=== PATIENT | male | born 1985 | race Caucasian/White ===

== ENCOUNTER 2016-08-31 11:03 | Emergency (ER) | payer SELFPAY ==
[~2016-08-31] VITALS: Ht 185.4 cm; Wt 79.6 kg
[~2016-08-31 11:03] MED LIST: BUPR8SUB SL; IBUP800T23 PO
[2016-08-31 11:05] VITALS: BP 136/73; PULSE 82; RESP 17; TEMP 98.7
--- NOTE | 2016-08-31 11:12 | PD ---
HPI Chief Complaint: Laceration/Skin Injury Time Seen by Provider: 11:11 Travel History International Travel<30 days: No Contact w/Intl Traveler<30days: No Traveled to known affect area: No History of Present Illness HPI 30-year-old male presents the emergency department with laceration to the tip of the distal left thumb involving the distal nail. Patient was cutting cardboard on the roof of his house when the box maker slipped and cut through the tip of his left distal thumb, with cut through approximately 80% of the tip. Patient has numbness in the tip. Bleeding is currently controlled with compression. Patient has full function. Patient is unsure of his last tetanus. He has no other injury. He has no known drug allergies. [facility] Past Medical History Arthritis: No Asthma: No Autoimmune Disease: No Blood Disorders: No Anxiety: No Depression: No Heart Rhythm Problems: No Cancer: No Cardiovascular Problems: No High Cholesterol: No Chest Pain: No Congestive Heart Failure: No COPD: No Cerebrovascular Accident: No Diabetes: No Diminished Hearing: No Endocrine: No GERD: No Glaucoma: No Genitourinary: No Headaches: No Hepatitis: No Hiatal Hernia: No Hypertension: No Immune Disorder: No Kidney Stones: No Musculoskeletal: No Neurologic: No Psychiatric: No Reproductive: No Respiratory: No Migraines: No Myocardial Infarction: No Renal Failure: No Seizures: No Sickle Cell Disease: No Sleep Apnea: No Thyroid Disease: No Ulcer: No ?: Not Past Surgical History Abdominal Surgery: No Appendectomy: No Arteriovenous Shunt: No Body Medical Devices: MONO Cardiac Surgery: No Cholecystectomy: No Ear Surgery: No Endocrine Surgery: No Eye Surgery: No Genitourinary Surgery: No Gynecologic Surgery: No Insulin Pump: No Joint Replacement: Yes (KIMBERLY HIPS A CHILD RE: GROWTH PLATE ISSUES) Oral Surgery: No Pacemaker: No Thoracic Surgery: No Other Surgery: Yes (L 5TH DIGIT) Social History Alcohol Use: No Tobacco Use: Yes (2 PK DAILY) Substance Use: Yes (last used cocaine 8 months ago. testosterone 1 week ago; weed 1 wk ago) Allergies-Medications (Allergen,Severity, Reaction): Coded Allergies: No Known Allergies (Verified , 08/31/16) Reported Meds & Prescriptions Reported Meds & Active Scripts Active Reported Buprenorphine (Buprenorphine HCl) 8 Mg Subl 8 Mg SL BID Review of Systems Except as stated in HPI: all other systems reviewed are Neg General / Constitutional: No: Fever Eyes: No: Visual changes HENT: No: Headaches Cardiovascular: No: Chest Pain or Discomfort Respiratory: No: Shortness of Breath Gastrointestinal: No: Abdominal Pain Genitourinary: No: Dysuria Musculoskeletal: No: Pain Skin: No Rash Neurologic: No: Weakness Psychiatric: No: Depression Endocrine: No: Polydipsia Hematologic/Lymphatic: No: Easy Bruising Physical Exam Narrative GENERAL: Patient appears in mild distress. SKIN: Warm and dry. Normal color. Normal turgor. Patient has an almost full- thickness avulsion-type laceration to the distal left thumb which involves distal 20% of the thumbnail. HEAD: Atraumatic. Normocephalic. EYES: Pupils equal and round. No scleral icterus. No injection or drainage. ENT: No nasal bleeding or discharge. Mucous membranes pink and moist. Pharynx is clear. NECK: Trachea midline. Supple. CARDIOVASCULAR: Regular rate and rhythm. RESPIRATORY: No accessory muscle use. MUSCULOSKELETAL: Extremities without clubbing, cyanosis, or edema. No obvious deformities. NEUROLOGICAL: Awake and alert. No obvious cranial nerve deficits. Motor grossly within normal limits. Five out of 5 muscle strength in the arms and legs. Normal speech. PSYCHIATRIC: Appropriate mood and affect; insight and judgment normal. Data Data Last Documented VS Vital Signs Date Time Temp Pulse Resp B/P Pulse Ox O2 Delivery O2 Flow Rate FiO2 08/31/16 11:05 98.7 82 17 136/73 Orders Finger ([id number]) (08/31/16 11:15) Bupivacaine Pf 0.5% Inj (Marcaine Pf 0.5 (08/31/16 11:15) Tetanus/Diphtheria Tox Adult (Tetanus/Di (08/31/16 11:15) MDM Medical Decision Making Medical Screen Exam Complete: Yes Emergency Medical Condition: Yes Differential Diagnosis Left thumb laceration. Possible bony injury. Need for tetanus. Narrative Course Patient is medically stable at time of exam. X-ray of the left thumb is obtained to evaluate for bony involvement. Wound was soaked in 10% Betadine solution for 10 minutes. Laceration was repaired, see procedure note. Sterile dressing was applied and should remain in place for the next 4 days. Wound area is to be kept clean and dry. Patient follow-up here on Monday for wound check or he can see his primary care physician. Patient can return sooner if symptoms worsen in any way. Procedures Procedure Narrative LACERATION LOCATION: Left distal thumb including distal 20% of the thumbnail. LENGTH: 2 cm NUMBER OF STITCHES/AUGUST: 3 simple interrupted REPAIR: The area of the laceration was soaked in Betadine and saline and then sterilely draped. Digital block of 3mls 0.5% bupivacaine was placed.. The wound was copiously irrigated and explored without evidence of foreign body, tendon injury or neurovascular injury. The wound was closed using 4-0 Prolene. This was a single layer repair. A sterile dressing was applied. The patient was advised to keep the dressing clean and dry. Patient tolerated the procedure well. Diagnosis Primary Impression: Laceration of left thumb without foreign body with damage to nail Qualified Code: S61.112A - Laceration of left thumb without foreign body with damage to nail, initial encounter Patient Instructions: Finger Laceration (ED), General Instructions Additional Instructions: X-ray of the left thumb is obtained to evaluate for bony involvement. Wound was soaked in 10% Betadine solution for 10 minutes. Laceration was repaired, see procedure note. Sterile dressing was applied and should remain in place for the next 4 days. Wound area is to be kept clean and dry. Patient follow-up here on Monday for wound check or he can see his primary care physician. Patient can return sooner if symptoms worsen in any way. Med/Other Pt SpecificInfo: Prescription(s) given Disposition: 01 DISCHARGE HOME Condition: Stable Tyson Lopez August 31, 2016 11:11
[2016-08-31] MEDS ORDERED: TETANUS/DIPHTHERIA TOXOID ADULT 0.5 ML VIAL IM ONE (11:15)
[2016-08-31] MEDS ORDERED: BUPIVACAINE HCL PF 0.5% 30 ML VIAL INFIL ONE (11:15)
--- NOTE | 2016-08-31 11:35 | RADHPO ---
EXAM DATE/TIME: 08/31/2016 11:21 [facility] COMPARISON: No previous studies available for comparison. INDICATIONS : Patient states he sliced his left thumb open with a razor blade. Left thumb pain and laceration. MEDICAL HISTORY : None. SURGICAL HISTORY : Left hand, fifth digit. ENCOUNTER: Initial ACUITY: 1 day PAIN SCORE: 5/10 LOCATION: Left thumb. FINDINGS: Post surgical changes with fixation hardware across the DIP joint fifth digit. There are no fractures . There is a laceration of the tip of the first digit identified. There is a punctate radiodensity wi thin soft tissues at the laceration site. CONCLUSION: Laceration with punctate foreign body present. Dg Mckeon MD on August 31, 2016 at 11:32 Board Certified Radiologist. This report was verified electronically.
[2016-08-31] MEDS ORDERED: CEPH-460 PO (12:12)
== END 2016-08-31 12:08 | disposition home or self-care (01) ==
LOC: PHEFT 11:03
DX: S61.012A Laceration without foreign body of left thumb without damage to nail, initial encounter (principal); F17.200 Nicotine dependence, unspecified, uncomplicated; Z23 Encounter for immunization; W27.8XXA Contact with other nonpowered hand tool, initial encounter
CPT/HCPCS: 12001; 73140; 90471; 90714

== ENCOUNTER 2016-09-10 17:43 | Emergency (ER) | payer SELFPAY ==
[~2016-09-10] VITALS: Ht 185.4 cm; Wt 82.0 kg
[~2016-09-10 17:43] MED LIST changes: +CEPH-460 PO; -IBUP800T23 PO
[2016-09-10 17:44] VITALS: BP 108/57; PULSE 57; RESP 15; TEMP 98; O2SAT 99
[2016-09-10] MEDS ORDERED: CEPH-459 PO (18:47)
--- NOTE | 2016-09-10 18:48 | PD ---
HPI Chief Complaint: Laceration/Skin Injury Time Seen by Provider: 18:20 Travel History International Travel<30 days: No Contact w/Intl Traveler<30days: No Traveled to known affect area: No History of Present Illness HPI 30-year-old male presents the emergency department for evaluation of left thumb laceration. Patient sustained original injury on 08/31/16 he had a distal thumb lack which was repaired here in the emergency department. He reports that today while at work he hit the tip of the thumb which caused the sutures to break he then removed the rest of the sutures. He is here for evaluation of the thumb. At the time of the exam the wound is well approximated. No active bleeding. He has normal sensation of the finger and full range of motion. PFSH Past Medical History Medical History: Denies Significant Hx Arthritis: No Asthma: No Autoimmune Disease: No Blood Disorders: No Anxiety: No Depression: No Heart Rhythm Problems: No Cancer: No Cardiovascular Problems: No High Cholesterol: No Chest Pain: No Congestive Heart Failure: No COPD: No Cerebrovascular Accident: No Diabetes: No Diminished Hearing: No Endocrine: No GERD: No Glaucoma: No Genitourinary: No Headaches: No Hepatitis: No Hiatal Hernia: No Hypertension: No Immune Disorder: No Kidney Stones: No Musculoskeletal: No Neurologic: No Psychiatric: No Reproductive: No Respiratory: No Migraines: No Myocardial Infarction: No Renal Failure: No Seizures: No Sickle Cell Disease: No Sleep Apnea: No Thyroid Disease: No Ulcer: No ?: Not Past Surgical History Abdominal Surgery: No Appendectomy: No Arteriovenous Shunt: No Body Medical Devices: MONO Cardiac Surgery: No Cholecystectomy: No Ear Surgery: No Endocrine Surgery: No Eye Surgery: No Genitourinary Surgery: No Gynecologic Surgery: No Insulin Pump: No Joint Replacement: Yes (KIMBERLY HIPS A CHILD RE: GROWTH PLATE ISSUES) Oral Surgery: No Pacemaker: No Thoracic Surgery: No Other Surgery: Yes (L 5TH DIGIT) Social History Alcohol Use: No Tobacco Use: Yes (2 PK DAILY) Substance Use: Yes (HX COCAINE, MARIJUANA, TESTOSTERONE; DENIES PRESENTLY (08/31)) Allergies-Medications (Allergen,Severity, Reaction): Coded Allergies: No Known Allergies (Verified , 09/10/16) Reported Meds & Prescriptions Reported Meds & Active Scripts Active Keflex (Cephalexin) 500 Mg Cap 500 Mg PO Q6HR Reported Buprenorphine (Buprenorphine HCl) 8 Mg Subl 8 Mg SL BID Review of Systems Except as stated in HPI: all other systems reviewed are Neg Physical Exam Narrative GENERAL: Well-nourished, well-developed patient. SKIN: Focused skin assessment warm/dry. Healing laceration to the left distal thumb. No evidence of infection. Laceration as well approximated. HEAD: Normocephalic. EYES: No scleral icterus. No injection or drainage. NECK: Supple, trachea midline. No JVD or lymphadenopathy. CARDIOVASCULAR: Regular rate and rhythm without murmurs, gallops, or rubs. RESPIRATORY: Breath sounds equal bilaterally. No accessory muscle use. GASTROINTESTINAL: Abdomen soft, non-tender, nondistended. MUSCULOSKELETAL: No cyanosis, or edema. BACK: Nontender without obvious deformity. No CVA tenderness. Data Data Last Documented VS Vital Signs Date Time Temp Pulse Resp B/P Pulse Ox O2 Delivery O2 Flow Rate FiO2 09/10/16 17:44 98.0 57 15 108/57 99 MDM Medical Decision Making Medical Screen Exam Complete: Yes Emergency Medical Condition: Yes Differential Diagnosis Thumb laceration, wound recheck Narrative Course 30-year-old male who presents to emergency department after reinjuring his left thumb. He reports personally 2 weeks ago he cut the tip of his thumb which was then sutured here in the emergency room. He reports today at work he hit the tip of his thumb which cause the wound to dehisce and the sutures to break. He put a Steri-Strip in place to hold the laceration place. On exam the wound edges are well approximated. There is no active bleeding. There is no sign of infection. The wound was dressed. A birdcage thumb splint was placed. And patient was put on Keflex. Diagnosis Primary Impression: Laceration of left thumb without foreign body with damage tonail Qualified Code: S61.112A - Laceration of left thumb without foreign body with damage to nail, initial encounter Referrals: Primary Care Physician Scripts Cephalexin (Keflex)250 Mg [id number] Mg PO Q6H #20 CAP Ref 0 Prov:Tova Cao 09/10/16 Disposition: 01 DISCHARGE HOME Condition: Stable Tova Cao Sep 10, 2016 18:48
== END 2016-09-10 19:00 | disposition home or self-care (01) ==
LOC: PHEFT 17:43
DX: S61.112A Laceration without foreign body of left thumb with damage to nail, initial encounter (principal); F17.210 Nicotine dependence, cigarettes, uncomplicated; W22.8XXA Striking against or struck by other objects, initial encounter; Y93.9 Activity, unspecified; Y92.9 Unspecified place or not applicable; Y99.0 Civilian activity done for income or pay
CPT/HCPCS: 99283

== ENCOUNTER 2017-03-16 10:00 | Emergency (ER) | payer SELFPAY ==
[~2017-03-16] VITALS: Ht 185.4 cm; Wt 79.9 kg
[~2017-03-16 10:00] MED LIST changes: +CEPH-459 PO
[2017-03-16 10:04] VITALS: BP 143/93; PULSE 50; RESP 16; TEMP 97.9; O2SAT 100
[2017-03-16] MEDS ORDERED: ONDANSETRON HCL 4 MG/2 ML VIAL IVP ONE (10:30)
[2017-03-16] MEDS ORDERED: SODIUM CHLORIDE 0.9% FLUSH 10 ML FLUSH IV FLUSH PRN (10:30)
[2017-03-16] MEDS ORDERED: PROMETHAZINE INJ 25 MG/ML VIAL IM ONE (10:30)
[2017-03-16] MEDS ORDERED: FAMOTIDINE 20 MG/2 ML VIAL IV PUSH ONE (10:30)
[2017-03-16] MEDS ORDERED: SODIUM CHLOR 0.9% 1000 ML INJ 1,000 ML IV ONE (10:30)
--- NOTE | 2017-03-16 10:33 | PD ---
HPI Chief Complaint: GI Complaint Time Seen by Provider: 10:15 Travel History International Travel<30 days: No Contact w/Intl Traveler<30days: No Traveled to known affect area: No History of Present Illness HPI This patient complains of nausea and vomiting. Duration is 2 days. Severity is moderate. Patient has history of IV drug abuse. He is currently injecting Subutex into his right external jugular vein. Denies diarrhea. Denies fever. No alleviating factors. No exacerbating factors. Patient has been taking Subutex for 1.5 years. Used to inject IV Dilaudid but says he no longer does. Says he has history of GERD and gastroparesis. PFSH Past Medical History Arthritis: No Asthma: No Autoimmune Disease: No Blood Disorders: No Anxiety: No Depression: No Heart Rhythm Problems: No Cancer: No Cardiovascular Problems: No High Cholesterol: No Chest Pain: No Congestive Heart Failure: No COPD: No Cerebrovascular Accident: No Diabetes: No Diminished Hearing: No Endocrine: No Gastrointestinal Disorders: Yes (gastroparesis) GERD: No Glaucoma: No Genitourinary: No Headaches: No Hepatitis: No Hiatal Hernia: No Hypertension: No Immune Disorder: No Kidney Stones: No Musculoskeletal: No Neurologic: No Psychiatric: No Reproductive: No Respiratory: No Immunizations Current: Yes Migraines: No Myocardial Infarction: No Renal Failure: No Seizures: No Sickle Cell Disease: No Sleep Apnea: No Thyroid Disease: No Ulcer: No Influenza Vaccination: No Past Surgical History Abdominal Surgery: No Appendectomy: No Arteriovenous Shunt: No Body Medical Devices: MONO Cardiac Surgery: No Cholecystectomy: No Ear Surgery: No Endocrine Surgery: No Eye Surgery: No Genitourinary Surgery: No Gynecologic Surgery: No Insulin Pump: No Joint Replacement: Yes (KIMBERLY HIPS A CHILD RE: GROWTH PLATE ISSUES) Oral Surgery: No Pacemaker: No Thoracic Surgery: No Other Surgery: Yes (L 5TH DIGIT) Social History Alcohol Use: No Tobacco Use: Yes (2 PK DAILY) Substance Use: Yes (HX COCAINE, MARIJUANA, TESTOSTERONE; DENIES PRESENTLY (08/31)) Allergies-Medications (Allergen,Severity, Reaction): Coded Allergies: No Known Allergies (Verified Adverse Reaction, Unknown, 03/16/17) Reported Meds & Prescriptions Reported Meds & Active Scripts Active Phenergan (Promethazine HCl) 25 Mg Tablet 25 Mg PO Q6H PRN Zofran Odt (Ondansetron Odt) 4 Mg Tab 4 Mg SL Q6HR PRN Reported Buprenorphine (Buprenorphine HCl) 8 Mg Subl 8 Mg SL BID Review of Systems General / Constitutional: No: Fever Eyes: No: Visual changes HENT: No: Headaches Cardiovascular: No: Chest Pain or Discomfort Respiratory: No: Shortness of Breath Gastrointestinal: Positive: Nausea, Vomiting, No: Abdominal Pain Genitourinary: No: Dysuria Musculoskeletal: No: Pain Skin: No Rash Neurologic: No: Weakness Psychiatric: Positive: Substance Abuse, No: Depression Endocrine: No: Polydipsia Hematologic/Lymphatic: No: Easy Bruising Physical Exam Narrative GENERAL: Well-nourished, well-developed patient with nausea and vomiting . SKIN: Focused skin assessment reveals no rash and nodules. Skin is Warm and dry. HEAD: Atraumatic. Normocephalic. EYES: Pupils equal and round. No scleral icterus. No injection or drainage. ENT: No nasal bleeding or discharge. Mucous membranes pink and moist. NECK: Trachea midline. No JVD. Has right external jugular tract rust CARDIOVASCULAR: Regular rate and rhythm. No murmur appreciated. RESPIRATORY: No accessory muscle use. Clear to auscultation. Breath sounds equal bilaterally. GASTROINTESTINAL: Abdomen soft, non-tender, nondistended. Hepatic and splenic margins not palpable. MUSCULOSKELETAL: No obvious deformities. No clubbing. No cyanosis. No edema. NEUROLOGICAL: Awake and alert. No obvious cranial nerve deficits. Motor grossly within normal limits. Normal speech. PSYCHIATRIC: Appropriate mood and affect; insight and judgment poor . Data Data Last Documented VS Vital Signs Date Time Temp Pulse Resp B/P (MAP) Pulse Ox O2 Delivery O2 Flow Rate FiO2 03/16/17 11:25 72 16 135/89 (104) 99 Room Air 03/16/17 10:04 97.9 Orders Orders Complete Blood Count With Diff (03/16/17 10:26) Comprehensive Metabolic Panel (03/16/17 10:26) Lipase (03/16/17 10:26) Iv Access Insert/Monitor (03/16/17 10:26) Ondansetron Inj (Zofran Inj) (03/16/17 10:30) Sodium Chloride 0.9% Flush (Ns Flush) (03/16/17 10:30) Famotidine Inj (Pepcid Inj) (03/16/17 10:30) Promethazine Inj (Phenergan Inj) (03/16/17 10:30) Sodium Chlor 0.9% 1000 Ml Inj (Ns 1000 M (03/16/17 10:30) Labs Laboratory Tests Test 03/16/17 10:30 White Blood Count 6.1 TH/MM3 Red Blood Count 5.27 MIL/MM3 Hemoglobin 15.3 GM/DL Hematocrit 46.1 % Mean Corpuscular Volume 87.5 FL Mean Corpuscular Hemoglobin 29.1 PG Mean Corpuscular Hemoglobin Concent 33.2 % Red Cell Distribution Width 12.7 % Platelet Count 178 TH/MM3 Mean Platelet Volume 7.2 FL Neutrophils (%) (Auto) 59.1 % Lymphocytes (%) (Auto) 30.6 % Monocytes (%) (Auto) 6.0 % Eosinophils (%) (Auto) 3.2 % Basophils (%) (Auto) 1.1 % Neutrophils # (Auto) 3.5 TH/MM3 Lymphocytes # (Auto) 1.9 TH/MM3 Monocytes # (Auto) 0.4 TH/MM3 Eosinophils # (Auto) 0.2 TH/MM3 Basophils # (Auto) 0.1 TH/MM3 CBC Comment DIFF FINAL Differential Comment Blood Urea Nitrogen 19 MG/DL Creatinine 1.00 MG/DL Random Glucose 116 MG/DL Total Protein 7.9 GM/DL Albumin 4.2 GM/DL Calcium Level 9.2 MG/DL Alkaline Phosphatase 82 U/L Aspartate Amino Transf (AST/SGOT) 28 U/L Alanine Aminotransferase (ALT/SGPT) 46 U/L Total Bilirubin 0.7 MG/DL Sodium Level 138 MEQ/L Potassium Level 4.2 MEQ/L Chloride Level 105 MEQ/L Carbon Dioxide Level 25.9 MEQ/L Anion Gap 7 MEQ/L Estimat Glomerular Filtration Rate 88 ML/MIN Lipase 130 U/L [facility] Medical Decision Making Medical Screen Exam Complete: Yes Emergency Medical Condition: Yes Medical Record Reviewed: Yes Differential Diagnosis Narcotic withdrawal, gastroenteritis, gastroparesis Narrative Course I have reviewed the patient's electronic medical record. IV placed CBC is normal metabolic profile is normal LFT's are normal lipase is normal I gave him 1 L normal saline IV bolus as well as IV Zofran and IM Phenergan and IV Tagamet. On reassessment he is feeling much better. Looks clinically well. Stable for outpatient follow-up Phenergan and Zofran prescribed Diagnosis Primary Impression: Nausea and vomiting Qualified Codes: R11.2 - Nausea with vomiting, unspecified Additional Instructions: The patient was advised to follow up with their physician and return if they worsen. The patient was warned about potential sedation for the medications they will receive on prescription. I have recommended clear liquids for 24 hours, then gradually advance as tolerated. Med/Other Pt SpecificInfo: Prescription(s) given Scripts Promethazine (Phenergan) 25 Mg Tablet 25 MG PO Q6H Y for NAUSEA OR VOMITING, #12 TAB 0 Refills Prov: Bolivar Gay MD 03/16/17 Ondansetron Odt (Zofran Odt) 4 Mg Tab 4 MG SL Q6HR Y for Nausea/Vomiting, #12 TAB 0 Refills Prov: Boliavr Gay MD 03/16/17 Disposition: 01 DISCHARGE HOME Condition: Stable Bolivar Gay MD Mar 16, 2017 10:33
[2017-03-16 10:37] LABS: AUTOMATED NEUTROPHIL # 3.5 TH/MM3 (1.8-7.7); BASOPHIL # 0.1 TH/MM3 (0-0.2); BASOPHIL % 1.1 % (0.0-2.0); EOSINOPHIL # 0.2 TH/MM3 (0-0.4); EOSINOPHIL % 3.2 % (0.0-4.0); HEMATOCRIT 46.1 % (39.0-51.0); HEMO FLAGS DIFF FINAL; LYMPH % 30.6 % (9.0-44.0); LYMPHOCYTE # 1.9 TH/MM3 (1.0-4.8); MEAN CELL VOLUME 87.5 FL (80.0-100.0); MEAN CORPUSCULAR HEMOGLOBIN 29.1 PG (27.0-34.0); MEAN CORPUSCULAR HGB CONC 33.2 % (32.0-36.0); NEUT % 59.1 % (16.0-70.0); PLATELET COUNT 178 TH/MM3 (150-450); RED BLOOD COUNT 5.27 MIL/MM3 (4.50-5.90); RED CELL DISTRIBUTION WIDTH 12.7 % (11.6-17.2); WHITE BLOOD COUNT 6.1 TH/MM3 (4.0-11.0)
[2017-03-16 10:45] LABS: CHLORIDE 105 MEQ/L (98-107); POTASSIUM 4.2 MEQ/L (3.5-5.1); SODIUM (NA) 138 MEQ/L (136-145)
[2017-03-16 10:49] LABS: ANION GAP 7 MEQ/L (5-15); BICARBONATE 25.9 MEQ/L (21.0-32.0); BLOOD UREA NITROGEN 19 MG/DL (7-18)
[2017-03-16 10:51] LABS: ALT (GPT) 46 U/L (12-78)
[2017-03-16 10:52] LABS: AST (GOT) 28 U/L (15-37); GLOMERULAR FILTRATION RATE 88 ML/MIN (>89)
[2017-03-16 10:53] LABS: TOTAL BILIRUBIN ADULT 0.7 MG/DL (0.2-1.0)
[2017-03-16 10:54] LABS: ALKALINE PHOSPHATASE 82 U/L (45-117)
[2017-03-16 11:25] VITALS: BP 135/89; PULSE 72; RESP 16; O2SAT 99
[2017-03-16] MEDS ORDERED: PROM25TA10 PO (11:29)
[2017-03-16] MEDS ORDERED: ZOFR4TAB3 SL (11:29)
== END 2017-03-16 11:59 | disposition home or self-care (01) ==
LOC: PHED 10:00
DX: K31.84 Gastroparesis (principal); F17.200 Nicotine dependence, unspecified, uncomplicated
CPT/HCPCS: 80053; 83690; 85025; 96361; 96372; 96374; 96375; 99284; J2405; J2550; J7030

== ENCOUNTER 2017-06-02 10:09 | Emergency (ER) | payer SELFPAY ==
[~2017-06-02] VITALS: Ht 182.9 cm; Wt 79.9 kg
[~2017-06-02 10:09] MED LIST changes: -CEPH-459 PO; -CEPH-460 PO; +PROM25TA10 PO; +ZOFR4TAB3 SL
[2017-06-02 10:13] VITALS: BP 134/81; PULSE 44; RESP 16; TEMP 97.7; O2SAT 100
[2017-06-02] MEDS ORDERED: SUBO8MIS SL (10:41)
[2017-06-02] MEDS ORDERED: SODIUM CHLOR 0.9% 1000 ML INJ 1,000 ML IV ONE ×2 (10:53→12:00)
[2017-06-02] MEDS ORDERED: PROCHLORPERAZINE INJ 10 MG/2 ML VIAL IV PUSH ONE (11:00)
[2017-06-02] MEDS ORDERED: SODIUM CHLORIDE 0.9% FLUSH 10 ML FLUSH IVF PRN (11:00)
[2017-06-02] MEDS ORDERED: diphenhydrAMINE HCL 50 MG/ML VIAL IV PUSH ONE (11:00)
[2017-06-02 11:21] LABS: AUTOMATED NEUTROPHIL # 4.8 TH/MM3 (1.8-7.7); BASOPHIL % 0.3 % (0.0-2.0); EOSINOPHIL # 0.2 TH/MM3 (0-0.4); EOSINOPHIL % 2.7 % (0.0-4.0); HEMATOCRIT 40.8 % (39.0-51.0); HEMOGLOBIN 14.5 GM/DL (13.0-17.0); LYMPH % 19.7 % (9.0-44.0); LYMPHOCYTE # 1.3 TH/MM3 (1.0-4.8); MEAN CELL VOLUME 87.4 FL (80.0-100.0); MEAN CORPUSCULAR HGB CONC 35.5 % (32.0-36.0); MEAN PLATELET VOLUME 7.6 FL (7.0-11.0); MONO % 3.5 % (0.0-8.0); MONOCYTE # 0.2 TH/MM3 (0-0.9); NEUT % 73.8 % (16.0-70.0); PLATELET COUNT 173 TH/MM3 (150-450); RED BLOOD COUNT 4.67 MIL/MM3 (4.50-5.90); RED CELL DISTRIBUTION WIDTH 12.8 % (11.6-17.2); WHITE BLOOD COUNT 6.5 TH/MM3 (4.0-11.0)
[2017-06-02] MEDS ORDERED: PROM25TA10 PO (11:28)
--- NOTE | 2017-06-02 11:29 | PD ---
HPI . Vomiting Chief Complaint: GI Complaint Time Seen by Provider: 10:37 Travel History International Travel<30 days: No Contact w/Intl Traveler<30days: No Traveled to known affect area: No History of Present Illness HPI Patient presents with a chief complaint of nausea and vomiting. Onset was 2 days ago. He denies diarrhea or fever. He states that he has a history of gastroparesis and that he believes his symptoms today are due to gastroparesis. He reports no abdominal pain. He states that the emesis has been severe and is now bilious. PFSH Past Medical History Arthritis: No Asthma: No Autoimmune Disease: No Blood Disorders: No Anxiety: No Depression: No Heart Rhythm Problems: No Cancer: No Cardiovascular Problems: No High Cholesterol: No Chest Pain: No Congestive Heart Failure: No COPD: No Cerebrovascular Accident: No Diabetes: No Diminished Hearing: No Endocrine: No Gastrointestinal Disorders: Yes (gastroparesis) GERD: Yes Glaucoma: No Genitourinary: No Headaches: No Hepatitis: No Hiatal Hernia: Yes Hypertension: No Immune Disorder: No Kidney Stones: No Musculoskeletal: Yes (chronic back pain) Neurologic: No Psychiatric: No Reproductive: No Respiratory: No Immunizations Current: Yes Migraines: No Myocardial Infarction: No Renal Failure: No Seizures: No Sickle Cell Disease: No Sleep Apnea: No Thyroid Disease: No Ulcer: Yes Tetanus Vaccination: < 5 Years Influenza Vaccination: No Past Surgical History Abdominal Surgery: No Appendectomy: No Arteriovenous Shunt: No Body Medical Devices: MONO Cardiac Surgery: No Cholecystectomy: No Ear Surgery: No Endocrine Surgery: No Eye Surgery: No Genitourinary Surgery: No Gynecologic Surgery: No Insulin Pump: No Joint Replacement: Yes (KIMBERLY HIPS A CHILD RE: GROWTH PLATE ISSUES) Oral Surgery: No Pacemaker: No Thoracic Surgery: No Other Surgery: Yes (L 5TH DIGIT, left arm) Social History Alcohol Use: No Tobacco Use: Yes ( quit 2 months ago 2 PK DAILY) Substance Use: Yes (HX COCAINE of, MARIJUANA, TESTOSTERONE; DENIES PRESENTLY) Allergies-Medications (Allergen,Severity, Reaction): Coded Allergies: No Known Allergies (Verified Adverse Reaction, Unknown, 06/02/17) Reported Meds & Prescriptions Reported Meds & Active Scripts Active Phenergan (Promethazine HCl) 25 Mg Tablet 25 Mg PO Q6H PRN Reported Suboxone Sublingual Film (Buprenorphine-Naloxone Sublingual Film) 8-2 Mg Film 1 Film SL BID Unique ID number required: Review of Systems Except as stated in HPI: all other systems reviewed are Neg General / Constitutional: No: Fever, Chills Gastrointestinal: Positive: Nausea, Vomiting, No: Diarrhea, Abdominal Pain Physical Exam Narrative GENERAL: Awake and alert and in no acute distress. SKIN: warm/dry. Normal color and turgor. HEAD: Normocephalic. Atraumatic. EYES: Pupils equal and round. No scleral icterus. No injection or drainage. ENT: No nasal bleeding or discharge. Mucous membranes pink and moist. NECK: Trachea midline. Full range of motion without pain.. CARDIOVASCULAR: Regular rate and rhythm. Heart sounds normal. RESPIRATORY: No accessory muscle use. Clear to auscultation. Breath sounds equal bilaterally. GASTROINTESTINAL: Abdomen soft. Nontender. Bowel sounds present. Nondistended. MUSCULOSKELETAL: No obvious deformities. NEUROLOGICAL: Awake and alert. No obvious cranial nerve deficits. Motor grossly within normal limits. Normal speech. PSYCHIATRIC: Appropriate mood and affect; insight and judgment normal. Data Data Last Documented VS Vital Signs Date Time Temp Pulse Resp B/P (MAP) Pulse Ox O2 Delivery O2 Flow Rate FiO2 06/02/17 10:36 16 06/02/17 10:13 97.7 44 134/81 (98) 100 Orders Orders Complete Blood Count With Diff (06/02/17 10:53) Comprehensive Metabolic Panel (06/02/17 10:53) Lipase (06/02/17 10:53) Iv Access Insert/Monitor (06/02/17 10:53) Sodium Chlor 0.9% 1000 Ml Inj (Ns 1000 M (06/02/17 10:53) Sodium Chloride 0.9% Flush (Ns Flush) (06/02/17 11:00) Diphenhydramine Inj (Benadryl Inj) (06/02/17 11:00) Prochlorperazine Inj (Compazine Inj) (06/02/17 11:00) Sodium Chlor 0.9% 1000 Ml Inj (Ns 1000 M (06/02/17 12:00) Labs Laboratory Tests Test 06/02/17 11:10 White Blood Count 6.5 TH/MM3 Red Blood Count 4.67 MIL/MM3 Hemoglobin 14.5 GM/DL Hematocrit 40.8 % Mean Corpuscular Volume 87.4 FL Mean Corpuscular Hemoglobin 31.0 PG Mean Corpuscular Hemoglobin Concent 35.5 % Red Cell Distribution Width 12.8 % Platelet Count 173 TH/MM3 Mean Platelet Volume 7.6 FL Neutrophils (%) (Auto) 73.8 % Lymphocytes (%) (Auto) 19.7 % Monocytes (%) (Auto) 3.5 % Eosinophils (%) (Auto) 2.7 % Basophils (%) (Auto) 0.3 % Neutrophils # (Auto) 4.8 TH/MM3 Lymphocytes # (Auto) 1.3 TH/MM3 Monocytes # (Auto) 0.2 TH/MM3 Eosinophils # (Auto) 0.2 TH/MM3 Basophils # (Auto) 0.0 TH/MM3 CBC Comment DIFF FINAL Differential Comment Blood Urea Nitrogen 16 MG/DL Creatinine 0.76 MG/DL Random Glucose 109 MG/DL Total Protein 7.6 GM/DL Albumin 4.0 GM/DL Calcium Level 9.1 MG/DL Alkaline Phosphatase 76 U/L Aspartate Amino Transf (AST/SGOT) 90 U/L Alanine Aminotransferase (ALT/SGPT) 153 U/L Total Bilirubin 0.7 MG/DL Sodium Level 139 MEQ/L Potassium Level 3.8 MEQ/L Chloride Level 103 MEQ/L Carbon Dioxide Level 29.0 MEQ/L Anion Gap 7 MEQ/L Estimat Glomerular Filtration Rate 121 ML/MIN Lipase 108 U/L MDM Medical Decision Making Medical Screen Exam Complete: Yes Emergency Medical Condition: Yes Differential Diagnosis Differential diagnosis includes but is not limited to viral gastritis, food poisoning, pancreatitis, pneumonia, hepatitis, acute coronary syndrome, Narrative Course This patient presents with the chief complaint of nausea and vomiting. He will be treated with IV fluids and IV antibiotics. CBC Diagram 06/02/17 11:10 BMP Diagram 06/02/17 11:10 Total Protein 7.6, Albumin 4.0, Calcium Level 9.1, Alkaline Phosphatase 76, Aspartate Amino Transf (AST/SGOT) 90 H, Alanine Aminotransferase (ALT/SGPT) 153 H, Total Bilirubin 0.7 The patient reports that he is feeling much better. However, he has not yet developed the urge to urinate. He will be given a second liter fluid. When the nurse went in to give him his second liter of fluid, he declined stating that he was feeling much better and had now started urinating. Diagnosis Primary Impression: Vomiting Qualified Codes: R11.14 - Bilious vomiting Patient Instructions: Gastroparesis (DC), General Instructions Med/Other Pt SpecificInfo: Prescription(s) given Scripts Promethazine (Phenergan) 25 Mg Tablet 25 MG PO Q6H Y for NAUSEA OR VOMITING, #12 TAB 0 Refills Prov: Tiara Doe MD 06/02/17 Disposition: 01 DISCHARGE HOME Condition: Stable Tiara Doe MD Jun 02, 2017 11:29
[2017-06-02 11:33] LABS: CHLORIDE 103 MEQ/L (98-107); SODIUM (NA) 139 MEQ/L (136-145)
[2017-06-02 11:36] LABS: CALCIUM 9.1 MG/DL (8.5-10.1)
[2017-06-02 11:37] LABS: BLOOD UREA NITROGEN 16 MG/DL (7-18); GLUCOSE,RANDOM 109 MG/DL (74-106)
[2017-06-02 11:39] LABS: ALT (GPT) 153 U/L (12-78); AST (GOT) 90 U/L (15-37)
[2017-06-02 11:40] LABS: CREATININE 0.76 MG/DL (0.60-1.30); GLOMERULAR FILTRATION RATE 121 ML/MIN (>89)
[2017-06-02 11:41] LABS: TOTAL BILIRUBIN ADULT 0.7 MG/DL (0.2-1.0); TOTAL PROTEIN 7.6 GM/DL (6.4-8.2)
[2017-06-02 11:42] LABS: ALKALINE PHOSPHATASE 76 U/L (45-117)
[2017-06-02 12:29] VITALS: BP 121/61
== END 2017-06-02 12:32 | disposition home or self-care (01) ==
LOC: PHED 10:09
DX: R11.2 Nausea with vomiting, unspecified (principal); K31.84 Gastroparesis; K21.9 Gastro-esophageal reflux disease without esophagitis; G89.29 Other chronic pain; M54.9 Dorsalgia, unspecified; Z87.891 Personal history of nicotine dependence
CPT/HCPCS: 80053; 83690; 85025; 96361; 96374; 96375; 99284; J0780; J1200; J7030

== ENCOUNTER 2017-09-01 20:23 | Emergency (ER) | payer SELFPAY ==
[~2017-09-01] VITALS: Ht 185.4 cm; Wt 85.2 kg
[~2017-09-01 20:23] MED LIST changes: -BUPR8SUB SL; +SUBO8MIS SL; -ZOFR4TAB3 SL
[2017-09-01 20:25] VITALS: BP 114/58; PULSE 58; RESP 16; TEMP 98.9; O2SAT 100
--- NOTE | 2017-09-01 20:34 | PD ---
HPI Chief Complaint: Cold / Flu Symptoms Time Seen by Provider: 20:29 Travel History International Travel<30 days: No Contact w/Intl Traveler<30days: No Traveled to known affect area: No History of Present Illness HPI 31-year-old male presents to the emergency department for evaluation of sore throat, chills with subjective fever for the past 4 days. Parents reports nausea. Patient states current pain is 3-4 out of 10, aching and throbbing. No radiation of pain. Patient is on Subutex for history of previous drug use. He states he has been clean for the past 2 years. No exacerbating or alleviating factors. Mild severity. PFSH Past Medical History Arthritis: No Asthma: No Autoimmune Disease: No Blood Disorders: No Anxiety: No Depression: No Heart Rhythm Problems: No Cancer: No Cardiovascular Problems: No High Cholesterol: No Chest Pain: No Congestive Heart Failure: No COPD: No Cerebrovascular Accident: No Diabetes: No Diminished Hearing: No Endocrine: No Gastrointestinal Disorders: Yes (gastroparesis) GERD: Yes Glaucoma: No Genitourinary: No Headaches: No Hepatitis: No Hiatal Hernia: Yes Hypertension: No Immune Disorder: No Kidney Stones: No Musculoskeletal: Yes (chronic back pain) Neurologic: No Psychiatric: No Reproductive: No Respiratory: No Immunizations Current: Yes Migraines: No Myocardial Infarction: No Renal Failure: No Seizures: No Sickle Cell Disease: No Sleep Apnea: No Thyroid Disease: No Ulcer: Yes Past Surgical History Abdominal Surgery: No Appendectomy: No Arteriovenous Shunt: No Body Medical Devices: MONO Cardiac Surgery: No Cholecystectomy: No Ear Surgery: No Endocrine Surgery: No Eye Surgery: No Genitourinary Surgery: No Gynecologic Surgery: No Insulin Pump: No Joint Replacement: Yes (KIMBERLY HIPS A CHILD RE: GROWTH PLATE ISSUES) Oral Surgery: No Pacemaker: No Thoracic Surgery: No Other Surgery: Yes (L 5TH DIGIT, left arm) Social History Alcohol Use: No Tobacco Use: Yes ( quit 2 months ago 2 PK DAILY) Substance Use: Yes (HX COCAINE of, MARIJUANA, TESTOSTERONE; DENIES PRESENTLY) Allergies-Medications (Allergen,Severity, Reaction): Coded Allergies: No Known Allergies (Verified Adverse Reaction, Unknown, 09/01/17) Reported Meds & Prescriptions Reported Meds & Active Scripts Active Phenergan (Promethazine HCl) 25 Mg Tablet 25 Mg PO Q6H PRN Reported Suboxone Sublingual Film (Buprenorphine-Naloxone Sublingual Film) 8-2 Mg Film 1 Film SL BID Unique ID number required: Review of Systems Except as stated in HPI: all other systems reviewed are Neg Physical Exam Narrative GENERAL: Well-nourished, well-developed male patient, ambulatory. Afebrile. SKIN: Focused skin assessment warm/dry. HEAD: Normocephalic. Atraumatic ENT: Mucosa pink and moist. Bilateral tonsils 2+ with erythema, no exudates. No uvular edema. No uvular, palatal, or tonsillar deviation. Airway patent. Nasal turbinates appear normal without nasal blood, purulent drainage or septal hematoma. Bilateral tympanic membranes clear without erythema or perforation. EYES: No scleral icterus. No injection or drainage. NECK: Supple, trachea midline. No JVD or lymphadenopathy. CARDIOVASCULAR: Regular rate and rhythm without murmurs, gallops, or rubs. RESPIRATORY: Breath sounds equal bilaterally. No accessory muscle use. Lung sounds are clear to auscultation. GASTROINTESTINAL: Abdomen soft, non-tender, nondistended. MUSCULOSKELETAL: No cyanosis, or edema. BACK: Nontender without obvious deformity. No CVA tenderness. Data Data Last Documented VS Vital Signs Date Time Temp Pulse Resp B/P (MAP) Pulse Ox O2 Delivery O2 Flow Rate FiO2 09/01/17 20:25 98.9 58 16 114/58 (76) 100 Orders Orders Ondansetron Odt (Zofran Odt) (09/01/17 20:45) MDM Medical Decision Making Medical Screen Exam Complete: Yes Emergency Medical Condition: Yes Medical Record Reviewed: Yes Differential Diagnosis Strep pharyngitis versus viral pharyngitis versus URI Narrative Course 31-year-old male presents to the emergency department for evaluation of sore throat, subjective fevers, nausea for 4 days. Patient is given Zofran 4 mg ODT in the emergency department. Patient will be discharged a prescription for Rafiq- Vee K, Zofran. He is to do warm salt water gargles and follow the primary care physician. The patient was discharged in stable condition with instructions, including return instructions and follow up instructions. Diagnosis Primary Impression: Pharyngitis Qualified Codes: J02.9 - Acute pharyngitis, unspecified Referrals: Primary Care Physician call for appointment Patient Instructions: General Instructions, Pharyngitis (ED) Additional Instructions: Take antibiotic as directed until gone. This is free at [facility]. Take Zofran as directed as needed for nausea. Tylenol/Ibuprofen for pain. Warm, salt water gargles. Follow up with a primary care physician. Return to the emergency department for any acute, worsening of symptoms. Med/Other Pt SpecificInfo: Prescription(s) given Scripts Ondansetron Odt (Ondansetron Odt) 4 Mg Tab 4 MG SL Q6HR Y for Nausea/Vomiting, #16 TAB 0 Refills Prov: Trish Lawrence 09/01/17 Penicillin V Potassium (Penicillin V Potassium) 500 Mg Tab 500 MG PO Q8H for Infection for 10 Days, #30 TAB 0 Refills Prov: Trish Lawrence 09/01/17 Disposition: 01 DISCHARGE HOME Condition: Stable Trish Lawrence September 01, 2017 20:34
[2017-09-01] MEDS ORDERED: PENI500T PO (20:37)
[2017-09-01] MEDS ORDERED: ONDA4TAB7 SL (20:37)
[2017-09-01] MEDS ORDERED: ONDANSETRON ODT 4 MG TAB PO ONE (20:45)
== END 2017-09-01 20:49 | disposition home or self-care (01) ==
LOC: PHEFT 20:23
DX: J02.9 Acute pharyngitis, unspecified (principal); G89.29 Other chronic pain; M54.9 Dorsalgia, unspecified; K21.9 Gastro-esophageal reflux disease without esophagitis; Z87.891 Personal history of nicotine dependence
CPT/HCPCS: 99283

== ENCOUNTER 2017-09-05 10:25 | Emergency (ER) | payer SELFPAY ==
[~2017-09-05] VITALS: Ht 185.4 cm; Wt 86.2 kg
[~2017-09-05 10:25] MED LIST changes: +ONDA4TAB7 SL; +PENI500T PO; -PROM25TA10 PO
[2017-09-05 10:28] VITALS: BP 121/69; PULSE 50; RESP 18; TEMP 98.3; O2SAT 99
[2017-09-05] MEDS ORDERED: BENZ100 PO (10:44)
[2017-09-05] MEDS ORDERED: PRED10 PO (10:44)
--- NOTE | 2017-09-05 10:50 | PD ---
HPI Chief Complaint: Cold / Flu Symptoms Time Seen by Provider: 10:39 Travel History International Travel<30 days: No Contact w/Intl Traveler<30days: No Traveled to known affect area: No History of Present Illness HPI 31-year-old male presents emergency department for evaluation of cough and cold- like symptoms that have been present for 1 week. Patient says he is also felt rundown and had sweats and subjective fevers. He admits to having a sore throat and sore lymph nodes. Says his cough is dry, associated with a sore throat. He denies shortness of breath or chest pain. He says he was prescribed penicillin a few days ago however, he says that this has not helped him. Patient says he is concerned because normally when he gets sick he is able to clear the infection quickly and this is been persistent despite antibiotic use. He denies nausea vomiting or diarrhea. PFSH Past Medical History Arthritis: No Asthma: No Autoimmune Disease: No Blood Disorders: No Anxiety: No Depression: No Heart Rhythm Problems: No Cancer: No Cardiovascular Problems: No High Cholesterol: No Chest Pain: No Congestive Heart Failure: No COPD: No Cerebrovascular Accident: No Diabetes: No Diminished Hearing: No Endocrine: No Gastrointestinal Disorders: Yes (gastroparesis) GERD: Yes Glaucoma: No Genitourinary: No Headaches: No Hepatitis: No Hiatal Hernia: Yes Hypertension: No Immune Disorder: No Kidney Stones: No Medical other: No Musculoskeletal: Yes (chronic back pain) Neurologic: No Reproductive: No Respiratory: No Immunizations Current: Yes Migraines: No Myocardial Infarction: No Renal Failure: No Seizures: No Sickle Cell Disease: No Sleep Apnea: No Thyroid Disease: No Ulcer: Yes Tetanus Vaccination: < 5 Years Past Surgical History Abdominal Surgery: No Appendectomy: No Arteriovenous Shunt: No Body Medical Devices: MONO Cardiac Surgery: No Cholecystectomy: No Ear Surgery: No Endocrine Surgery: No Eye Surgery: No Genitourinary Surgery: No Gynecologic Surgery: No Insulin Pump: No Joint Replacement: Yes (KIMBERLY HIPS A CHILD RE: GROWTH PLATE ISSUES) Oral Surgery: No Pacemaker: No Thoracic Surgery: No Other Surgery: Yes (BULLETS/SHRAPNEL IN LEFT LEG, FRACTURE JAW ) Social History Alcohol Use: No Tobacco Use: Yes (QUITE 03/2017) Substance Use: No (HX COCAINE of, MARIJUANA, TESTOSTERONE; DENIES PRESENTLY) Allergies-Medications (Allergen,Severity, Reaction): Coded Allergies: No Known Allergies (Verified Adverse Reaction, Unknown, 09/05/17) Reported Meds & Prescriptions Reported Meds & Active Scripts Active Tessalon Perles (Benzonatate) 100 Mg Cap 100 Mg PO TID PRN 5 Days Prednisone 10 Mg Tab 10 Mg PO DAILY 7 Days Penicillin V Potassium 500 Mg Tab 500 Mg PO Q8H 10 Days Reported Suboxone Sublingual Film (Buprenorphine-Naloxone Sublingual Film) 8-2 Mg Film 1 Film SL BID Unique ID number required: Review of Systems Except as stated in HPI: all other systems reviewed are Neg Physical Exam Narrative GENERAL: Well-nourished, well-developed patient, in NAD SKIN: Focused skin assessment warm/dry. No rashes or lesions. HEAD: Normocephalic. Atraumatic. EYES: No scleral icterus. No injection or drainage. PERRLA, EOMI THROAT: Mild pharyngeal injection without exudates or tonsillar hypertrophy. Airway is patent. NECK: Supple, trachea midline. No JVD or lymphadenopathy. No meningismus. CARDIOVASCULAR: Regular rate and rhythm without murmurs, gallops, or rubs. RESPIRATORY: Breath sounds equal bilaterally. No accessory muscle use. No wheezes, rales, or rhonchi MUSCULOSKELETAL: No cyanosis, or edema. Jero's sign negative bilaterally BACK: Nontender without obvious deformity. No CVA tenderness. Data Data Last Documented VS Vital Signs Date Time Temp Pulse Resp B/P (MAP) Pulse Ox O2 Delivery O2 Flow Rate FiO2 09/05/17 10:28 98.3 50 18 121/69 (86) 99 MDM Medical Decision Making Medical Screen Exam Complete: Yes Emergency Medical Condition: Yes Differential Diagnosis Upper respiratory infection, viral syndrome, common cold, allergic rhinitis Narrative Course 31-year-old male presents emergency department for evaluation of cough and cold- like symptoms that have been present for 1 week. Patient says he is also felt rundown and had sweats and subjective fevers. He admits to having a sore throat and sore lymph nodes. Says his cough is dry, associated with a sore throat. He denies shortness of breath or chest pain. He says he was prescribed penicillin a few days ago however, he says that this has not helped him. Patient says he is concerned because normally when he gets sick he is able to clear the infection quickly and this is been persistent despite antibiotic use. He denies nausea vomiting or diarrhea. Vital signs are stable. 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 I suspect that his symptoms may be related to withdrawal versus a viral versus allergic rhinitis. He says that penicillin has not been helping his symptoms. Will prescribe prednisone and Tessalon Perles for his cough, postnasal drip, and sore throat. He may continue penicillin although I do not suspect this would help him. I advised him to have adequate intake and proper nutrition. He should follow-up with a primary care physician. [facility] information given. Diagnosis Primary Impression: Common cold Referrals: [facility] Additional Instructions: Take all medications as prescribed. You may use a drop of honey and lemon in a cup of warm water to soothe your cough. Ensure good hydration and a nutritious diet. Note that viral infection symptoms may last for several weeks if you have a viral illness. Scripts Benzonatate (Tessalon Perles) 100 Mg Cap 100 MG PO TID Y for COUGH for 5 Days, CAP 0 Refills Prov: Marilou Miranda DO 09/05/17 Prednisone (Prednisone) 10 Mg Tab 10 MG PO DAILY for 7 Days, #7 TAB 0 Refills Prov: Marilou Miranda DO 09/05/17 Disposition: 01 DISCHARGE HOME Condition: Stable Teri Soto September 05, 2017 10:50
== END 2017-09-05 10:59 | disposition home or self-care (01) ==
LOC: PHEFT 10:25
DX: J00 Acute nasopharyngitis [common cold] (principal); K21.9 Gastro-esophageal reflux disease without esophagitis; Z87.19 Personal history of other diseases of the digestive system; Z87.891 Personal history of nicotine dependence; Z79.899 Other long term (current) drug therapy
CPT/HCPCS: 99283